=== PATIENT | female | born 1930 | race Caucasian/White ===

== ENCOUNTER 2017-04-11 19:26 | Inpatient (IN) | payer MEDICARE, OTHER ==
[~2017-04-11] VITALS: Ht 170.2 cm; Wt 63.0 kg
[2017-04-11 20:16] LABS: *BILIRUBIN,URIN NEGATIVE (NEGATIVE); *BLOOD, URINE NEGATIVE (NEGATIVE); *CLARITY,URINE SLIGHTLY CLOUDY (CLEAR); *COLOR,URINE YELLOW (YELLOW); *KETONES,URINE NEGATIVE (NEGATIVE); *PROTEIN,URINE NEGATIVE (NEGATIVE); NITRITE, URINE NEGATIVE (NEGATIVE); PH,URINE 7.5 (5.0-8.0); UGLUCOSE NEGATIVE (NEGATIVE)
[2017-04-11 20:23] LABS: LEUKOCYTE ESTERASE ,URINE TRACE (NEGATIVE)
[2017-04-11 20:24] LABS: SQUAMOUS EPITHELIAL CELL,UR FEW /HPF (NONE SEEN)
[2017-04-11 20:25] LABS: MUCUS,URINE FEW /LPF (0-FEW); URINE AMORPHOUS PHOSPHATES MANY /HPF
[2017-04-11 20:28] LABS: *AMPHETAMINE, URINE NEGATIVE (NEGATIVE); *BARBITURATE, URINE NEGATIVE (NEGATIVE); *CANNABINOID, URINE NEGATIVE (NEGATIVE); *COCCAINE, URINE NEGATIVE (NEGATIVE); *OPIATE, URINE NEGATIVE (NEGATIVE); *PHENCYCLIDINE SCREEN,URINE NEGATIVE (NEGATIVE)
[2017-04-11 20:30] LABS: BASOPHILS % (AUTO) 0.9 % (0.0-2.0); EOSINOPHILS # (AUTO) 0.2 K/uL (0.0-0.7); EOSINOPHILS % (AUTO) 4.4 % (0.0-7.0); HEMATOCRIT 33.2 % (37-47); HEMOGLOBIN 11.2 G/DL (12.0-16.0); LYMPHOCYTES # (AUTO) 1.2 K/UL (0.8-4.8); LYMPHOCYTES % (AUTO) 26.5 % (20.5-51.5); MEAN CORPUSCULAR HGB CONC 34 g/dL (32.0-37.0); MEAN CORPUSCULAR VOLUME 97.5 FL (81.0-99.0); MONOCYTES # (AUTO) 0.5 K/UL (0.1-1.30); MONOCYTES % (AUTO) 12.1 % (0.0-11.0); NEUTROPHILS # (AUTO) 2.5 K/UL (1.8-8.9); NEUTROPHILS % (AUTO) 56.1 % (38.5-71.5); PLATELET COUNT (AUTO) 171 K/UL (150-450); RED CELL DISTRIBUTION WIDTH 15.9 % (11.5-14.5); WHITE BLOOD COUNT (AUTO) 4.4 K/UL (4.0-11.2)
[2017-04-11 20:44] LABS: ACETAMINOPHEN 6.7 ug/mL (10-30); ALANINE AMINOTRANSFERASE 34 U/L (14-59); ALBUMIN 3.1 g/dL (3.4-5.0); ALKALINE PHOSPHATASE 82 U/L (50-136); ASPARTATE AMINOTRANSFERASE 28 U/L (15-37); BILIRUBIN,DIRECT 0.1 mg/dL (0.0-0.2); BILIRUBIN,TOTAL 0.2 mg/dL (0.2-1.0); CALCIUM 9.2 mg/dL (8.5-10.1); CARBON DIOXIDE 31 mmol/L (21-32); CHLORIDE 106 mmol/L (98-107); CREATININE 0.9 mg/dL (0.6-1.3); GLUCOSE 119 mg/dL (74-106); POTASSIUM 4.1 mmol/L (3.5-5.1); SODIUM SERUM 142 mmol/L (136-145); TOTAL PROTEIN, SERUM 6.6 g/dL (6.4-8.2); UREA NITROGEN, BLOOD 17 mg/dL (7-18)
[2017-04-11 20:46] LABS: ETHANOL < 3 MG/DL (0-0)
[2017-04-11] MEDS ORDERED: LORAZEPAM 2 MG/1 ML VIAL ONE (21:01)
[2017-04-11] MEDS ORDERED: OLAN5TAB3 PO (21:03)
[2017-04-11] MEDS ORDERED: CALC500T51 PO (21:03)
[2017-04-11] MEDS ORDERED: ALEN70TA45 PO (21:03)
[2017-04-11] MEDS ORDERED: FLUT16SP NS (21:03)
[2017-04-11] MEDS ORDERED: TRAM50TA2 PO (21:03)
[2017-04-11] MEDS ORDERED: LORA0.5T PO (21:03)
[2017-04-11] MEDS ORDERED: LEVO100T10 PO (21:03)
[2017-04-11] MEDS ORDERED: SENN8.6T6 PO (21:03)
[2017-04-11] MEDS ORDERED: TRAZ-144 PO (21:03)
[2017-04-11] MEDS ORDERED: DOCU-170 PO (21:03)
[2017-04-11] MEDS ORDERED: ACET325T53 PO (21:03)
[2017-04-11] MEDS ORDERED: TRAZ-147 PO (21:03)
[2017-04-11] MEDS ORDERED: ALBU8.5H2 IH (21:03)
[2017-04-11] MEDS ORDERED: DIVA500T7 PO (21:03)
[2017-04-11] MEDS ORDERED: MAGN400O4 PO (21:03)
[2017-04-11] MEDS ORDERED: BIOT5000 PO (21:03)
[2017-04-11] MEDS ORDERED: CHOL100030 PO (21:03)
[2017-04-11] MEDS ORDERED: DIVA250T6 PO (21:03)
[2017-04-11] MEDS ORDERED: MULT1TAB74 PO (21:03)
[2017-04-11 21:05] LABS: THYROID STIMULATING HORMONE 2.553 mIU/mL (0.358-3.740)
[2017-04-11 21:16] LABS: ANISOCYTOSIS 1+
[2017-04-11] MEDS ORDERED: MAGNESIUM HYDROXIDE 30 ML LIQUID UDC PO PRN ×2 (22:30→22:45)
[2017-04-11] MEDS ORDERED: ALBUTEROL SULFATE 8 GM HFA.AER.AD IH PRN (22:30)
[2017-04-11] MEDS ORDERED: SENNOSIDES 1 TABLET PO PRN (22:30)
[2017-04-11] MEDS ORDERED: ACETAMINOPHEN 325 MG TABLET PO PRN (22:45)
[2017-04-11] MEDS ORDERED: MAG HYDROX/AL HYDROX/SIMETH 30 ML LIQUID UDC PO PRN (22:45)
[2017-04-11] MEDS ORDERED: LORAZEPAM 2 MG/1 ML VIAL IM ONE (22:45)
[2017-04-11 23:30] VITALS: BP 125/54
[2017-04-12] MEDS: TEMAZEPAM 7.5 MG CAPSULE PO PRN ×2 (00:06→22:08)
[2017-04-12] MEDS ORDERED: TEMAZEPAM 7.5 MG CAPSULE ONE (00:15)
[2017-04-12 07:30] VITALS: BP 123/69
[2017-04-12] MEDS ORDERED: ALBUTEROL SULFATE 2.5 MG/3 ML NEBU NEB PRN (07:30)
[2017-04-12] MEDS: LEVOTHYROXINE SODIUM 100 MCG TABLET PO SCH (08:36)
[2017-04-12] MEDS: DOCUSATE SODIUM 100 MG CAPSULE PO SCH ×2 (08:36→16:42)
[2017-04-12] MEDS: CHOLECALCIFEROL 1,000 UNIT TABLET PO SCH (08:36)
[2017-04-12] MEDS: MULTIVIT, IRON, MIN NO. 8, FA TABLET PO SCH (08:36)
[2017-04-12] MEDS: CALCIUM CARBONATE 500 MG TABLET PO SCH ×2 (08:45→16:42)
[2017-04-12] MEDS: FLUTICASONE PROP NASAL SPRAY 16 GM BOTTLE NS SCH (08:46)
[2017-04-12] MEDS ORDERED: [UNRECOGNIZED DRUG - OTHER] PO SCH (09:00)
[2017-04-12] MEDS ORDERED: MULTIVITS TH W FE OTHER MIN PO SCH (09:00)
[2017-04-12] MEDS: DIVALPROEX SPRINKLE 125 MG CAP.SPRINK PO SCH ×2 (11:53→20:09)
[2017-04-12] MEDS: OLANZAPINE ZYDIS 5 MG TAB.RAPDIS PO SCH ×2 (11:53→17:06)
[2017-04-12] MEDS: LORAZEPAM 0.5 MG TABLET PO PRN (14:06)
[2017-04-12 15:00] VITALS: BP 129/74
[2017-04-12 20:18] VITALS: BP 135/80
[2017-04-13] MEDS: TRAMADOL HCL 50 MG TABLET PO PRN (05:59)
[2017-04-13] MEDS ORDERED: ALENDRONATE SODIUM 70 MG TABLET PO SCH (06:00)
[2017-04-13] MEDS: LEVOTHYROXINE SODIUM 100 MCG TABLET PO SCH (06:00)
[2017-04-13 07:30] VITALS: BP 114/69
[2017-04-13] MEDS: CHOLECALCIFEROL 1,000 UNIT TABLET PO SCH (08:03)
[2017-04-13] MEDS: DIVALPROEX SPRINKLE 125 MG CAP.SPRINK PO SCH ×2 (08:03→20:26)
[2017-04-13] MEDS: OLANZAPINE ZYDIS 5 MG TAB.RAPDIS PO SCH ×3 (08:03→16:51)
[2017-04-13] MEDS: CALCIUM CARBONATE 500 MG TABLET PO SCH ×2 (08:03→16:21)
[2017-04-13] MEDS: MULTIVIT, IRON, MIN NO. 8, FA TABLET PO SCH (08:04)
[2017-04-13] MEDS: DOCUSATE SODIUM 100 MG CAPSULE PO SCH ×2 (08:04→16:21)
[2017-04-13] MEDS: FLUTICASONE PROP NASAL SPRAY 16 GM BOTTLE NS SCH (08:04)
[2017-04-13 16:16] VITALS: BP 90/50
[2017-04-13 17:27] LABS: *BILIRUBIN,URIN NEGATIVE (NEGATIVE); *BLOOD, URINE NEGATIVE (NEGATIVE); *CLARITY,URINE SLIGHTLY CLOUDY (CLEAR); *COLOR,URINE DARK YELLOW (YELLOW); *KETONES,URINE TRACE (NEGATIVE); *PROTEIN,URINE NEGATIVE (NEGATIVE); *UROBILINOGEN,URINE 0.2 E.U./dl (NORMAL); LEUKOCYTE ESTERASE ,URINE NEGATIVE (NEGATIVE); NITRITE, URINE NEGATIVE (NEGATIVE); UGLUCOSE NEGATIVE (NEGATIVE)
[2017-04-13 17:44] LABS: BACTERIA,URINE NONE SEEN /HPF (NONE SEEN); RBC,URINE 0-3 /HPF (0-3); SQUAMOUS EPITHELIAL CELL,UR FEW /HPF (NONE SEEN); WBC,URINE 0-3 /HPF (0-3)
[2017-04-13 20:35] VITALS: BP 117/61
[2017-04-13] MEDS: TEMAZEPAM 7.5 MG CAPSULE PO PRN (23:29)
[2017-04-14] MEDS: LORAZEPAM 0.5 MG TABLET PO PRN (00:39)
[2017-04-14] MEDS: LEVOTHYROXINE SODIUM 100 MCG TABLET PO SCH (06:11)
[2017-04-14 07:44] VITALS: BP 112/50
[2017-04-14 08:24] LABS: BASOPHILS % (AUTO) 0.1 % (0.0-2.0); EOSINOPHILS # (AUTO) 0.2 K/uL (0.0-0.7); EOSINOPHILS % (AUTO) 3.3 % (0.0-7.0); HEMATOCRIT 34.3 % (37-47); HEMOGLOBIN 11.7 G/DL (12.0-16.0); LYMPHOCYTES # (AUTO) 0.9 K/UL (0.8-4.8); LYMPHOCYTES % (AUTO) 12.9 % (20.5-51.5); MEAN CORPUSCULAR HEMOGLOBIN 33.4 UUG (27.0-31.0); MEAN CORPUSCULAR HGB CONC 34 g/dL (32.0-37.0); MONOCYTES # (AUTO) 0.9 K/UL (0.1-1.30); MONOCYTES % (AUTO) 13.2 % (0.0-11.0); NEUTROPHILS # (AUTO) 4.9 K/UL (1.8-8.9); NEUTROPHILS % (AUTO) 70.5 % (38.5-71.5); PLATELET COUNT (AUTO) 162 K/UL (150-450); RED BLOOD CELL COUNT(AUTO) 3.49 MIL/UL (4.2-5.4); RED CELL DISTRIBUTION WIDTH 16.2 % (11.5-14.5)
[2017-04-14 08:30] LABS: ALBUMIN 2.9 g/dL (3.4-5.0); BILIRUBIN,TOTAL 0.2 mg/dL (0.2-1.0); CREATININE 0.8 mg/dL (0.6-1.3); MAGNESIUM 2.3 mg/dL (1.8-2.4); PHOSPHOROUS 3.2 mg/dL (2.5-4.9); TOTAL PROTEIN, SERUM 6.3 g/dL (6.4-8.2)
[2017-04-14 08:34] LABS: WHITE BLOOD COUNT (AUTO) 6.9 K/UL (4.0-11.2)
[2017-04-14] MEDS: DOCUSATE SODIUM 100 MG CAPSULE PO SCH ×2 (08:38→16:09)
[2017-04-14] MEDS: DIVALPROEX SPRINKLE 125 MG CAP.SPRINK PO SCH ×2 (08:38→20:26)
[2017-04-14] MEDS: CHOLECALCIFEROL 1,000 UNIT TABLET PO SCH (08:38)
[2017-04-14] MEDS: MULTIVIT, IRON, MIN NO. 8, FA TABLET PO SCH (08:38)
[2017-04-14] MEDS: FLUTICASONE PROP NASAL SPRAY 16 GM BOTTLE NS SCH (08:38)
[2017-04-14] MEDS: CALCIUM CARBONATE 500 MG TABLET PO SCH ×2 (08:38→16:09)
[2017-04-14] MEDS: OLANZAPINE ZYDIS 5 MG TAB.RAPDIS PO SCH ×3 (08:38→16:09)
[2017-04-14 16:12] VITALS: BP 109/74
[2017-04-14 20:39] VITALS: BP 127/62
[2017-04-14] MEDS: TEMAZEPAM 7.5 MG CAPSULE PO PRN (22:27)
[2017-04-15] MEDS: LORAZEPAM 0.5 MG TABLET PO PRN ×3 (00:04→18:47)
[2017-04-15] MEDS: LEVOTHYROXINE SODIUM 100 MCG TABLET PO SCH (06:14)
[2017-04-15 07:30] VITALS: BP 118/59
[2017-04-15] MEDS: DOCUSATE SODIUM 100 MG CAPSULE PO SCH ×2 (09:15→17:43)
[2017-04-15] MEDS: FLUTICASONE PROP NASAL SPRAY 16 GM BOTTLE NS SCH (09:15)
[2017-04-15] MEDS: CALCIUM CARBONATE 500 MG TABLET PO SCH ×2 (09:16→17:43)
[2017-04-15] MEDS: OLANZAPINE ZYDIS 5 MG TAB.RAPDIS PO SCH ×3 (09:16→17:43)
[2017-04-15] MEDS: DIVALPROEX SPRINKLE 125 MG CAP.SPRINK PO SCH ×2 (09:16→20:04)
[2017-04-15] MEDS: CHOLECALCIFEROL 1,000 UNIT TABLET PO SCH (09:16)
[2017-04-15] MEDS: MULTIVIT, IRON, MIN NO. 8, FA TABLET PO SCH (09:16)
[2017-04-15 16:07] VITALS: BP 112/52
[2017-04-15 20:24] VITALS: BP 124/68
[2017-04-15] MEDS: TEMAZEPAM 7.5 MG CAPSULE PO PRN (21:50)
[2017-04-16] MEDS: LORAZEPAM 0.5 MG TABLET PO PRN ×3 (05:16→22:16)
[2017-04-16] MEDS: LEVOTHYROXINE SODIUM 100 MCG TABLET PO SCH (06:12)
[2017-04-16 07:30] VITALS: BP 109/62
[2017-04-16] MEDS: OLANZAPINE ZYDIS 5 MG TAB.RAPDIS PO SCH ×3 (08:22→16:19)
[2017-04-16] MEDS: MULTIVIT, IRON, MIN NO. 8, FA TABLET PO SCH (08:22)
[2017-04-16] MEDS: DIVALPROEX SPRINKLE 125 MG CAP.SPRINK PO SCH ×2 (08:22→21:16)
[2017-04-16] MEDS: CALCIUM CARBONATE 500 MG TABLET PO SCH ×2 (08:22→16:18)
[2017-04-16] MEDS: DOCUSATE SODIUM 100 MG CAPSULE PO SCH ×2 (08:22→16:18)
[2017-04-16] MEDS: CHOLECALCIFEROL 1,000 UNIT TABLET PO SCH (08:22)
[2017-04-16] MEDS: TRAMADOL HCL 50 MG TABLET PO PRN (08:59)
[2017-04-16] MEDS: FLUTICASONE PROP NASAL SPRAY 16 GM BOTTLE NS SCH (09:48)
[2017-04-16 16:00] VITALS: BP 114/59
[2017-04-16 20:04] VITALS: BP 116/64
[2017-04-17] MEDS: LEVOTHYROXINE SODIUM 100 MCG TABLET PO SCH (06:27)
[2017-04-17 07:30] VITALS: BP 120/70
[2017-04-17] MEDS: LORAZEPAM 0.5 MG TABLET PO PRN (07:47)
[2017-04-17] MEDS: TRAMADOL HCL 50 MG TABLET PO PRN (07:58)
[2017-04-17] MEDS: DOCUSATE SODIUM 100 MG CAPSULE PO SCH (08:50)
[2017-04-17] MEDS: OLANZAPINE ZYDIS 5 MG TAB.RAPDIS PO SCH ×2 (08:50→13:42)
[2017-04-17] MEDS: CHOLECALCIFEROL 1,000 UNIT TABLET PO SCH (08:50)
[2017-04-17] MEDS: MULTIVIT, IRON, MIN NO. 8, FA TABLET PO SCH (08:50)
[2017-04-17] MEDS: CALCIUM CARBONATE 500 MG TABLET PO SCH (08:50)
[2017-04-17] MEDS: DIVALPROEX SPRINKLE 125 MG CAP.SPRINK PO SCH (08:50)
[2017-04-17] MEDS: FLUTICASONE PROP NASAL SPRAY 16 GM BOTTLE NS SCH (09:56)
[2017-04-17] MEDS ORDERED: NITROFURANTOIN/NITROFURAN MAC 100 MG CAPSULE PO SCH (21:00)
== END 2017-04-17 15:30 | DRG 885 ==
LOC: ER 19:32 → GPS 22:15
PROVIDERS: ADMIT Psychiatry & Neurology Psychiatry; ATTEND Internal Medicine
DX: F29 Unspecified psychosis not due to a substance or known physiological condition (principal); N39.0 Urinary tract infection, site not specified; E44.0 Moderate protein-calorie malnutrition; F03.91 Unspecified dementia, unspecified severity, with behavioral disturbance; Z73.6 Limitation of activities due to disability; E03.9 Hypothyroidism, unspecified; F32.9 Major depressive disorder, single episode, unspecified; F41.9 Anxiety disorder, unspecified; M81.0 Age-related osteoporosis without current pathological fracture; G47.00 Insomnia, unspecified; Z90.710 Acquired absence of both cervix and uterus; E88.09 Other disorders of plasma-protein metabolism, not elsewhere classified; M19.90 Unspecified osteoarthritis, unspecified site; D63.8 Anemia in other chronic diseases classified elsewhere; Z68.21 Body mass index [BMI] 21.0-21.9, adult; E11.9 Type 2 diabetes mellitus without complications; Z79.899 Other long term (current) drug therapy
CPT/HCPCS: 36415; 71010; 80164; 80307; 83735; 84100; 84443; 85025; 85730; 87077; 87086; 93005; 97001; 97110; 97116; 97530; A4663; G0480-TC; G6040-TC; J2060; J3535